=== PATIENT | female | born 1990 ===

== ENCOUNTER 2024-03-30 08:26 | Outpatient (CLI) | payer OTHER | END 2024-03-30 10:51 | disposition home or self-care (01) | LOC: MRI 08:26 | PROVIDERS: ATTEND Specialist | DX: K80.10 Calculus of gallbladder with chronic cholecystitis without obstruction (principal) | CPT/HCPCS: 74181 ==

== ENCOUNTER 2024-05-17 05:10 | Day surgery (SDC) | payer OTHER ==
[2024-05-12 08:11] LABS: HEMATOCRIT 44.2 % (36.0-45.00); HEMOGLOBIN 14.8 g/dL (12.0-15.00); MEAN CELL VOLUME 83.2 fL (80.00-100.00); MEAN CORPUSCULAR HEMOGLOBIN 27.8 pg (27.00-32.0); MEAN CORPUSCULAR HGB CONC 33.4 g/dl (32.0-36.0); PLATELET COUNT 361 K/uL (150-450); RED BLOOD COUNT 5.31 M/uL (4.00-6.00); RED CELL DISTRIBUTION WIDTH 14.4 % (11.5-14.5)
[2024-05-12 08:14] LABS: URINE APPEARANCE Clear; URINE BILIRRUBIN Negative (NEGATIVE); URINE BLOOD Negative; URINE COLOR Yellow; URINE KETONE Trace (NEGATIVE); URINE LEUKOCYTE Negative; URINE NITRATE Negative; URINE PROTEIN Negative (NEGATIVE); URINE UROBILINOGEN 0.2 E.U./dl
[2024-05-12 08:15] LABS: URINE BACTERIA 1161.6 uL (0.0-1933); URINE EPITHELIAL CELLS 18.8 uL (0.0-38.8); URINE WBC 8.3 uL (0.0-23.2)
[2024-05-12 08:22] LABS: URINE GLUCOSE >=1000 MG/DL (NEGATIVE); URINE RBC 1.2 uL (0.0-20.8)
[2024-05-12 08:34] LABS: INR 0.99; PARTIAL THROMBOPLASTIN TIME 32.2 SECONDS (22.0-34.0)
[2024-05-12 08:37] LABS: PROTHROMBIN TIME 10.4 SECONDS (9.0-11.5)
[2024-05-12 09:11] LABS: ALBUMIN 4.1 gm/dL (3.4-5.0); BILIRUBIN TOTAL 0.94 mg/dL (0.3-1.2); CALCIUM 9.7 mg/dL (8.5-10.1); CREATININE SERUM 0.7 mg/dL (0.55-1.02); GFR 96.37; POTASSIUM 4.01 mEq/L (3.5-5.1); TOTAL PROTEIN 8.1 gm/dL (6.4-8.2)
[~2024-05-17 05:10] MED LIST: LOSARTAN POTASS25 MG; SYNJARDY XR 101 EACH PO; VITAMINA D
[2024-05-17] MEDS ORDERED: CEFAZOLIN SODIUM 1,000 MG VIAL ONE ×2 (05:50→10:54)
[2024-05-17] MEDS ORDERED: LIDOCAINE HCL 1%/EPINEPHRINE 20ML VIAL IJ ONE (07:36)
[2024-05-17] MEDS ORDERED: CHLORHEXIDINE GLUCONATE 120 ML BOTTLE TOP ONE (07:36)
[2024-05-17] MEDS ORDERED: BUPIVACAINE HCL/MPF 0.5% 30ML VIAL ONE (07:36)
[2024-05-17] MEDS ORDERED: SUGAMMADEX SODIUM 200 MG/2 ML VIAL IV ONE ×2 (08:36→08:59)
[2024-05-17] MEDS ORDERED: FAMOTIDINE/PF 20 MG/10 ML SYRINGE IV SCH (10:15)
[2024-05-17] MEDS ORDERED: CEFAZOLIN SODIUM 1,000 MG VIAL IV SCH (10:15)
[2024-05-17] MEDS ORDERED: FAMOTIDINE/PF 20 MG/2 ML VIAL ONE (10:55)
== END 2024-05-17 11:50 | disposition home or self-care (01) ==
LOC: CIR.AMB 05:10
PROVIDERS: ATTEND Specialist
DX: K80.10 Calculus of gallbladder with chronic cholecystitis without obstruction (principal); E11.9 Type 2 diabetes mellitus without complications; Z91.013 Allergy to seafood